=== PATIENT | female | born 1950 | race Caucasian/White ===

== ENCOUNTER 2018-07-12 13:58 | Observation (INO) | payer OTHER ==
--- NOTE | 2018-07-12 14:59 | ER ---
Nurse's Notes [facility] Name: Jovanna Mittal Age: 67 yrs Sex: Female : 1950 Arrival Date: 07/12/2018 Time: 14:03 Bed 24 Private MD: Aimee Marsh F Diagnosis: Chronic obstructive pulmonary disease with (acute) exacerbation;Hypoxemia Presentation: 07/12 14:06 Presenting complaint: Patient states: Fever for 2 days with low SPO2 today. Denies SOB. aj Nasal congestion, sinus and right ear pain. Transition of care: patient was not received from another setting of care. Onset of symptoms was July 10, 2018. Risk Assessment: Do you want to hurt yourself or someone else? Patient reports no desire to harm self or others. Initial Sepsis Screen: Does the patient meet any 2 criteria? RR > 20 per min. HR > 90 bpm. Yes Does the patient have a suspected source of infection? Yes:. Care prior to arrival: None. 14:06 Method Of Arrival: Ambulatory aj 14:06 Acuity: ESTEFANY 3 aj Triage Assessment: 14:09 General: Appears in no apparent distress. comfortable, Behavior is calm, cooperative, aj appropriate for age. Pain: Denies pain. EENT: Reports nasal congestion nasal discharge. Neuro: Oriented to person, place, time, situation, Appropriate for age. Respiratory: Airway is patent Respiratory effort is even, unlabored, Respiratory pattern is regular, symmetrical. Respiratory: Reports cough that is productive. Derm: Skin is intact, is healthy with good turgor, Skin is pink, warm \T\ dry. normal. Historical: - Allergies: 14:09 No Known Allergies; aj - Home Meds: 14:09 Lisinopril Oral [Active]; atorvastatin oral oral [Active]; Albuterol Inhl [Active]; aj Advair Diskus Inhl [Active]; - PMHx: 14:09 COPD; Hypertension; Hyperlipidemia; aj - PSHx: 14:09 Tubal ligation; aj - Immunization history:: Adult Immunizations up to date. - Social history:: Smoking status: Patient uses tobacco products, denies chronic smoking, but will smoke occasionally. - Ebola Screening: : Patient negative for fever greater than or equal to 101.5 degrees Fahrenheit, and additional compatible Ebola Virus Disease symptoms Patient denies exposure to infectious person Patient denies travel to an Ebola-affected area in the 21 days before illness onset No symptoms or risks identified at this time. - Family history:: not pertinent. Screenin:05 Abuse screen: Denies threats or abuse. Nutritional screening: No deficits noted. dm5 Tuberculosis screening: No symptoms or risk factors identified. Fall Risk None identified. Assessment: 15:00 General: Appears comfortable, slender, well groomed, well developed, well nourished, dm5 Behavior is calm, cooperative, appropriate for age, Reports fever for 1-2 days. Pain: Complains of pain in chest. Neuro: Level of Consciousness is awake, alert, obeys commands, Oriented to person, place, time, situation, Appropriate for age. Cardiovascular: Patient's skin is warm and dry. Respiratory: Airway is patent Respiratory effort is even, Respiratory pattern is regular. Respiratory: Reports shortness of breath since 2 days cough that is productive, persistent. GI: No signs and/or symptoms were reported involving the gastrointestinal system. : No signs and/or symptoms were reported regarding the genitourinary system. EENT: No signs and/or symptoms were reported regarding the EENT system. Derm: No signs and/or symptoms reported regarding the dermatologic system. 16:05 Reassessment: No changes from previously documented assessment. Patient and/or family tl3 updated on plan of care and expected duration. Pain level reassessed. Patient is alert, oriented x 3, equal unlabored respirations, skin warm/dry/pink. pt oxygen levels dropped to 88% after nebs, 2 L/M oxygen brought up to 94-96%. 17:12 Reassessment: No changes from previously documented assessment. Patient and/or family tl3 updated on plan of care and expected duration. Pain level reassessed. Patient is alert, oriented x 3, equal unlabored respirations, skin warm/dry/pink. no needs at this time. Vital Signs: 14:09 BP 123 / 77; Pulse 94; Resp 22; Temp 98.9; Pulse Ox 87% on R/A; Weight 69.4 kg; Height aj 5 ft. 2 in. (157.48 cm); 16:05 BP 126 / 99; Pulse 95; Resp 18; Pulse Ox 95% ; tl3 17:12 BP 103 / 57; Pulse 88; Resp 18; Pulse Ox 97% on 2 lpm NC; tl3 14:09 Body Mass Index 27.98 (69.40 kg, 157.48 cm) ED Course: 14:03 Patient arrived in ED. mr 14:04 Aimee Marsh MD is Private Physician. mr 14:07 Triage completed. aj 14:09 Arm band placed on right wrist. Patient placed in an exam room. aj 14:22 Eren Peñaloza MD is Attending Physician. agueda 14:43 Annabelle Ibarra, JEANETH is Primary Nurse. tl3 14:58 Aimee Marsh MD is Hospitalizing Provider. agueda 15:00 Inserted saline lock: 20 gauge in right antecubital area, using aseptic technique. dm5 Blood collected. 15:07 XRAY Chest (1 view) In Process Unspecified. EDMS 15:09 EKG done, by information technology internship. reviewed by Eren Peñaloza MD. 3 16:21 REPEAT EKG DONE. sm3 17:05 Patient has correct armband on for positive identification. Placed in gown. Call light dm5 in reach. Side rails up X 1. Door closed. Lights dimmed. Warm blanket given. 17:05 No provider procedures requiring assistance completed. dm5 17:22 Patient admitted, IV remains in place. tl3 Administered Medications: 11 16:00 Drug: levofloxacin 500 mg Volume: 100 ml; Route: IVPB; Infused Over: 60 mins; Site: tl3 right forearm; Delivery: Primary tubing; 07/12 15:16 Drug: SOLU-Medrol 125 mg Route: IVP; Infused Over: 2 mins; Site: right antecubital; tl3 15:16 Drug: Albuterol - atroVENT (3:1) (2.5 mg - 0.5 mg) 3 ml Route: Nebulizer; tl3 23:59 Follow up: Response: No adverse reaction tl3 15:20 Drug: NS 0.9% 1000 ml Route: IV; Rate: 75 ml/hr; Site: right antecubital; Delivery: tl3 Primary tubing; 17:03 Drug: Lovenox 70 mg Route: Sub-Q; Site: abdomen; dm5 17:04 Follow up: Response: No adverse reaction dm5 17:03 Drug: Pepcid 20 mg Route: IVP; Site: right antecubital; dm5 17:04 Follow up: Response: No adverse reaction dm5 17:04 Drug: Lopressor 25 mg Route: PO; dm5 23:58 Follow up: Response: No adverse reaction tl3 17:04 Drug: Aspirin Chewable Tablet 324 mg Route: PO; dm5 17:05 Follow up: Response: No adverse reaction dm5 Outcome: 14:58 Decision to Hospitalize by Provider. agueda 17:22 Admitted to Tele accompanied by tech, via wheelchair, with chart, Report called to tl3 JEANETH Hyman 17:22 Condition: stable 17:22 Instructed on the need for admit, Demonstrated understanding of instructions. 18:22 Patient left the ED. tl3 Signatures: Dispatcher [employer] EDLeslie Culver RN RN dm5 Geno Elena RN RN aj Anderson, Corey, MD MD cha Rivera, Estefani Ibarra, JEANETH Alanis RN tl3 Libby Restrepo 3
--- NOTE | 2018-07-12 14:59 | EDPHYS ---
Physician Documentation [facility] Name: Jovanna Mittal Age: 67 yrs Sex: Female : 1950 Arrival Date: 07/12/2018 Time: 14:03 Bed 24 Private MD: Aimee Marsh F ED Physician Eren Peñaloza HPI: 07/12 14:45 This 67 yrs old Female presents to ER via Ambulatory with complaints of Low agueda O2. 14:45 The patient has shortness of breath at rest, with light activity. Onset: The agueda symptoms/episode began/occurred 3 day(s) ago. Duration: The symptoms are continuous, and are steadily getting worse. The patient's shortness of breath is aggravated by exertion, supine position, talking, walking, is alleviated by rest, sitting up, application of supplemental oxygen. The patient presents to the emergency department with wheezing, Current therapy: albuterol inhaler, steroid inhaler. Modifying factors: The symptoms are alleviated by nothing. Historical: - Allergies: 14:09 No Known Allergies; aj - Home Meds: 14:09 Lisinopril Oral [Active]; atorvastatin oral oral [Active]; Albuterol Inhl [Active]; aj Advair Diskus Inhl [Active]; - PMHx: 14:09 COPD; Hypertension; Hyperlipidemia; aj - PSHx: 14:09 Tubal ligation; aj - Immunization history:: Adult Immunizations up to date. - Social history:: Smoking status: Patient uses tobacco products, denies chronic smoking, but will smoke occasionally. - Ebola Screening: : Patient negative for fever greater than or equal to 101.5 degrees Fahrenheit, and additional compatible Ebola Virus Disease symptoms Patient denies exposure to infectious person Patient denies travel to an Ebola-affected area in the 21 days before illness onset No symptoms or risks identified at this time. - Family history:: not pertinent. ROS: 14:45 Constitutional: Negative for fever, chills, and weight loss, Eyes: Negative for injury, agueda pain, redness, and discharge, ENT: Negative for injury, pain, and discharge, Neck: Negative for injury, pain, and swelling, Cardiovascular: Negative for chest pain, palpitations, and edema, Abdomen/GI: Negative for abdominal pain, nausea, vomiting, diarrhea, and constipation, Back: Negative for injury and pain, : Negative for injury, bleeding, discharge, and swelling, MS/Extremity: Negative for injury and deformity, Skin: Negative for injury, rash, and discoloration, Neuro: Negative for headache, weakness, numbness, tingling, and seizure, Psych: Negative for depression, anxiety, suicide ideation, homicidal ideation, and hallucinations, Allergy/Immunology: Negative for hives, rash, and allergies, Endocrine: Negative for neck swelling, polydipsia, polyuria, polyphagia, and marked weight changes, Hematologic/Lymphatic: Negative for swollen nodes, abnormal bleeding, and unusual bruising. 14:45 Respiratory: Positive for cough, shortness of breath, at rest. Exam: 14:45 Constitutional: This is a well developed, well nourished patient who is awake, alert, agueda and in no acute distress. Head/Face: Normocephalic, atraumatic. Eyes: Pupils equal round and reactive to light, extra-ocular motions intact. Lids and lashes normal. Conjunctiva and sclera are non-icteric and not injected. Cornea within normal limits. Periorbital areas with no swelling, redness, or edema. ENT: Nares patent. No nasal discharge, no septal abnormalities noted. Tympanic membranes are normal and external auditory canals are clear. Oropharynx with no redness, swelling, or masses, exudates, or evidence of obstruction, uvula midline. Mucous membranes moist. Neck: Trachea midline, no thyromegaly or masses palpated, and no cervical lymphadenopathy. Supple, full range of motion without nuchal rigidity, or vertebral point tenderness. No Meningismus. Chest/axilla: Normal chest wall appearance and motion. Nontender with no deformity. No lesions are appreciated. Cardiovascular: Regular rate and rhythm with a normal S1 and S2. No gallops, murmurs, or rubs. Normal PMI, no JVD. No pulse deficits. Abdomen/GI: Soft, non-tender, with normal bowel sounds. No distension or tympany. No guarding or rebound. No evidence of tenderness throughout. Back: No spinal tenderness. No costovertebral tenderness. Full range of motion. Female : Normal external genitalia. Skin: Warm, dry with normal turgor. Normal color with no rashes, no lesions, and no evidence of cellulitis. MS/ Extremity: Pulses equal, no cyanosis. Neurovascular intact. Full, normal range of motion. Neuro: Awake and alert, GCS 15, oriented to person, place, time, and situation. Cranial nerves II-XII grossly intact. Motor strength 5/5 in all extremities. Sensory grossly intact. Cerebellar exam normal. Normal gait. Psych: Awake, alert, with orientation to person, place and time. Behavior, mood, and affect are within normal limits. 14:45 Respiratory: moderate respiratory distress is noted, Respirations: labored breathing, that is mild, Breath sounds: bronchial sounds, that are moderate, are scattered, decreased breath sounds, that are moderate, rhonchi, wheezing: inspiratory expiratory 15:07 Musculoskeletal/extremity: DVT Exam: No signs of deep vein thrombosis. no pain, no agueda swelling, no tenderness, negative Homans' sign noted on exam, no appreciated bluish discoloration, no erythema, no increased warmth. Vital Signs: 14:09 BP 123 / 77; Pulse 94; Resp 22; Temp 98.9; Pulse Ox 87% on R/A; Weight 69.4 kg; Height aj 5 ft. 2 in. (157.48 cm); 16:05 BP 126 / 99; Pulse 95; Resp 18; Pulse Ox 95% ; tl3 17:12 BP 103 / 57; Pulse 88; Resp 18; Pulse Ox 97% on 2 lpm NC; tl3 14:09 Body Mass Index 27.98 (69.40 kg, 157.48 cm) MDM: 14:22 Patient medically screened. [facility] 14:48 Data reviewed: vital signs, nurses notes, lab test result(s), EKG, radiologic studies, [facility] plain films. 07/12 14:44 Order name: Basic Metabolic Panel; Complete Time: 16:01 [facility] 07/12 14:44 Order name: CBC with Diff; Complete Time: 16:01 [facility] 07/12 14:44 Order name: LFT's; Complete Time: 16: [facility] 07/12 14:44 Order name: Magnesium; Complete Time: 16: [facility] 07/12 14:44 Order name: NT PRO-BNP; Complete Time: 16: [facility] 07/12 14:44 Order name: PT-INR; Complete Time: 16: [facility] 07/12 14:44 Order name: Troponin (emerg Dept Use Only); Complete Time: 16: [facility] 07/12 14:44 Order name: Blood Culture Adult (2) [facility] 07/12 14:44 Order name: Influenza Screen (a \T\ B); Complete Time: 16:01 [facility] 07/12 14:59 Order name: Urine Culture [facility] 07/12 15:17 Order name: Basic Metabolic Panel [facility] 07/12 15:17 Order name: Basic Metabolic Panel [facility] 07/12 15:17 Order name: CBC with Automated Diff [facility] 07/12 15:17 Order name: CBC with Automated Diff [facility] 07/12 14:44 Order name: XRAY Chest (1 view); Complete Time: 16:01 [facility] 07/12 15:17 Order name: NT PRO-BNP [facility] 07/12 15:17 Order name: NT PRO-BNP [facility] 07/12 15:17 Order name: Troponin I [facility] 07/12 15:17 Order name: Troponin I [facility] 07/12 15:18 Order name: Troponin I [facility] 07/12 15:18 Order name: Chest Single View [facility] 07/12 15:18 Order name: Chest Single View [facility] 07/12 14:44 Order name: EKG; Complete Time: 14:45 [facility] 07/12 14:44 Order name: Cardiac monitoring; Complete Time: 15:18 [facility] 07/12 14:44 Order name: EKG - Nurse/Tech; Complete Time: 15:18 [facility] 07/12 14:44 Order name: IV Saline Lock; Complete Time: 15:18 [facility] 07/12 14:44 Order name: Labs collected and sent; Complete Time: 15:18 [facility] 07/12 14:44 Order name: O2 Per Protocol; Complete Time: 15:17 [facility] 07/12 14:44 Order name: O2 Sat Monitoring; Complete Time: 15:18 [facility] 07/12 14:59 Order name: Urine Dipstick-Ancillary (obtain specimen); Complete Time: 23:58 [facility] 07/12 15:17 Order name: Heart Healthy [facility] 07/12 15:17 Order name: EKG Electrocardiogram [facility] 07/12 15:17 Order name: EKG Electrocardiogram [facility] 07/12 16:17 Order name: EKG; Complete Time: 16:35 [facility] 07/12 16:17 Order name: EKG - Nurse/Tech; Complete Time: 16:35 [facility] Administered Medications: 07/11 16:00 Drug: levofloxacin 500 mg Volume: 100 ml; Route: IVPB; Infused Over: 60 mins; Site: tl3 right forearm; Delivery: Primary tubing; 07/12 15:16 Drug: SOLU-Medrol 125 mg Route: IVP; Infused Over: 2 mins; Site: right antecubital; tl3 15:16 Drug: Albuterol - atroVENT (3:1) (2.5 mg - 0.5 mg) 3 ml Route: Nebulizer; tl3 23:59 Follow up: Response: No adverse reaction tl3 15:20 Drug: NS 0.9% 1000 ml Route: IV; Rate: 75 ml/hr; Site: right antecubital; Delivery: tl3 Primary tubing; 17:03 Drug: Lovenox 70 mg Route: Sub-Q; Site: abdomen; dm5 17:04 Follow up: Response: No adverse reaction dm5 17:03 Drug: Pepcid 20 mg Route: IVP; Site: right antecubital; dm5 17:04 Follow up: Response: No adverse reaction dm5 17:04 Drug: Lopressor 25 mg Route: PO; dm5 23:58 Follow up: Response: No adverse reaction tl3 17:04 Drug: Aspirin Chewable Tablet 324 mg Route: PO; dm5 17:05 Follow up: Response: No adverse reaction dm5 Disposition: 07/12/18 14:58 Hospitalization ordered by Aimee Marsh for Observation. Preliminary diagnosis are Chronic obstructive pulmonary disease with (acute) exacerbation, Hypoxemia. - Bed requested for Telemetry/MedSurg (observation). - Status is Observation. tl3 - Condition is Fair. - Problem is new. - Symptoms have improved. UTI on Admission? No Signatures: Dispatcher [employer] [facility] Leslie Swann RN RN dm5 Janet Polk RN Geno Grant RN RN aj Anderson, Corey, MD MD cha Lowrey, Tammy, RN RN tl3 Corrections: (The following items were deleted from the chart) 15:48 14:58 Hospitalization Ordered by Aimee Marsh MD for Observation. Preliminary dw diagnosis is Chronic obstructive pulmonary disease with (acute) exacerbation; Hypoxemia. Bed requested for Telemetry/MedSurg (observation). Status is Observation. Condition is Fair. Problem is new. Symptoms have improved. UTI on Admission? No. agueda 18:22 15:48 07/12/2018 14:58 Hospitalization Ordered by Aimee Marsh MD for Observation. tl3 Preliminary diagnosis is Chronic obstructive pulmonary disease with (acute) exacerbation; Hypoxemia. Bed requested for Telemetry/MedSurg (observation). Status is Observation. Condition is Fair. Problem is new. Symptoms have improved. UTI on Admission? No. dw
[2018-07-12] MEDS ORDERED: ACETAMINOPHEN 500 MG TAB PO PRN (15:02)
[2018-07-12] MEDS ORDERED: ONDANSETRON 4 MG/2 ML VIAL IV PRN (15:02)
[2018-07-12] MEDS ORDERED: NA CHLORIDE 0.9% 1,000 ML ONE (15:09)
[2018-07-12] MEDS ORDERED: METHYLPREDNISOLONE 125 MG INJ ONE (15:09)
[2018-07-12] MEDS ORDERED: IPRATROPIUM BROM 0.5MG/2.5ML ONE (15:09)
[2018-07-12] MEDS ORDERED: ALBUTEROL 2.5 MG/3 ML NEB SOL ONE (15:09)
[2018-07-12 15:12] LABS: Absolute Lymphocytes (CBC) 0.7 K/uL (0.7-4.9); Absolute Monocytes 0.7 K/uL (0.1-1.3); Absolute Neutrophil 2.5 K/uL (1.8-8.0); Hematocrit 46.2 % (36.0-45.0); Lymphocytes % 17.4 % (15.3-44.8); MCH 31.8 pg (27.0-35.0); MCV 95.2 fL (80-100); Monocytes % 18.8 % (3.3-12.3); Protime INR 0.92; RBC Red Blood Cell Count 4.85 M/uL (3.86-4.86)
[2018-07-12 15:28] LABS: Albumin 4.2 g/dL (3.4-5.0); Bilirubin Direct 0.2 mg/dL (0-0.2); Bilirubin Total 0.7 mg/dL (0.2-1.0); Magnesium 1.9 mg/dL (1.8-2.4); Potassium 4.1 mmol/L (3.5-5.1); Protein, Total 7.7 g/dL (6.4-8.2); Troponin (Emerg Dept Use Only) 0.11 ng/mL (0.0-0.045)
--- NOTE | 2018-07-12 15:29 | RAD REPORT ---
EXAM DESCRIPTION: RAD - Chest Single View - 07/12/2018 3:06 pm CLINICAL HISTORY: Cough, COPD COMPARISON: November 2015 TECHNIQUE: AP portable chest image was obtained 1602 hours . FINDINGS: No focal consolidation, mass or significant failure finding. Fibrotic lung pattern is martell lar to comparison. Heart and vasculature are normal. No measurable pleural effusion and no pneumothor ax. No acute bony abnormality seen. No acute aortic findings suspected. IMPRESSION: No acute cardiopulmonary process. Fibrotic lung pattern similar to comparison.
[2018-07-12] MEDS: Levofloxacin500mg IV 500 MG/100 ML BAG IV SCH (16:00)
[2018-07-12] MEDS ORDERED: ASPIRIN 81 MG CHEWABLE TABLET ONE (16:56)
[2018-07-12] MEDS ORDERED: FAMOTIDINE 20 MG/2 ML VIAL IV ONE (16:57)
[2018-07-12] MEDS: METHYLPREDNISOLONE 40 MG INJ IV SCH (17:00)
[2018-07-12 17:55] VITALS: BMI 28.9
[2018-07-12] MEDS: METOPROLOL TAR 25 MG TAB PO SCH (18:00)
--- NOTE | 2018-07-12 18:45 | EKG ---
Test Date: 2018-07-12 Test Time: 16:17:35 Strategic Planning Manager: CHAVA MEASUREMENT RESULTS: Intervals: Rate: 91 LA: 140 QRSD: 80 QT: 398 QTc: 489 [place]: P: 73 LA: 140 QRS: 72 T: 70 INTERPRETIVE STATEMENTS: Normal sinus rhythm Normal ECG Compared to ECG 07/12/2018 14:59:01 No significant changes Electronically Signed On 07-12-18 18:44:40 GILL BOX TENDER by Pawan Cortez
--- NOTE | 2018-07-12 18:46 | EKG ---
Test Date: 2018-07-12 Test Time: 14:59:01 Agriculture Technician: CHAVA MEASUREMENT RESULTS: Intervals: Rate: 88 SC: 140 QRSD: 78 QT: 384 QTc: 464 [place]: P: 77 SC: 140 QRS: 75 T: 76 INTERPRETIVE STATEMENTS: Normal sinus rhythm Normal ECG Compared to ECG 08/07/2003 11:25:00 No significant changes Electronically Signed On 07-12-18 18:44:44 LAB COURIER by Pawan Cortez
[2018-07-12] MEDS ORDERED: INFLUENZA VACCINE (for 3y+) 0.5 ML DOSE IMVAC ONE (19:00)
[2018-07-12] MEDS ORDERED: PNEUMOCOCCAL VACCINE 0.5 ML IMVAC ONE (19:00)
[2018-07-12] MEDS: FAMOTIDINE 20 MG/2 ML VIAL IV SCH (20:55)
[2018-07-12] MEDS: ENOXAPARIN 80 MG/0.8 ML SQ SCH (20:55)
[2018-07-13] MEDS: METHYLPREDNISOLONE 40 MG INJ IV SCH ×3 (01:25→16:15)
[2018-07-13] MEDS: METOPROLOL TAR 25 MG TAB PO SCH ×2 (05:38→17:40)
[2018-07-13 06:24] LABS: Absolute Lymphocytes (CBC) 0.3 K/uL (0.7-4.9); Absolute Monocytes 0.2 K/uL (0.1-1.3); Absolute Neutrophil 1.2 K/uL (1.8-8.0); Basophils % 0.3 % (0-1.3); Hematocrit 43.1 % (36.0-45.0); Lymphocytes % 19.7 % (15.3-44.8); MCH 31.8 pg (27.0-35.0); MCV 94.7 fL (80-100); MPV 7.8 fL (7.6-11.3); Monocytes % 9.9 % (3.3-12.3); RBC Red Blood Cell Count 4.55 M/uL (3.86-4.86)
[2018-07-13 06:37] LABS: BUN Blood Urea Nitrogen 12 mg/dL (7-18); Bicarbonate 30 mmol/L (21-32); Glucose Level 138 mg/dL (74-106); NT PRO-BNP 201 pg/mL (<125); Potassium 4.4 mmol/L (3.5-5.1); Sodium Level 139 mmol/L (136-145)
[2018-07-13 06:52] LABS: Blood Morphology Comment NOT SEEN (NOT SEEN); Platelet Estimate ADEQ; Urine White Blood Cell Casts OK
[2018-07-13] MEDS: FAMOTIDINE 20 MG/2 ML VIAL IV SCH ×2 (08:18→21:30)
[2018-07-13] MEDS: ASPIRIN EC 81 MG TAB PO SCH (08:19)
[2018-07-13] MEDS: ENOXAPARIN 80 MG/0.8 ML SQ SCH ×2 (08:19→21:29)
--- NOTE | 2018-07-13 10:33 | RAD REPORT ---
EXAM DESCRIPTION: Sun Single View07/13/2018 6:12 am CLINICAL HISTORY: 07/12 COMPARISON: none FINDINGS: The lungs appear clear of acute infiltrate. The heart is normal size IMPRESSION: No acute abnormalities displayed
[2018-07-13] MEDS ORDERED: INFLUENZA VACCINE (for 3y+) 0.5 ML DOSE IMVAC ONE (14:00)
[2018-07-13] MEDS ORDERED: PNEUMOCOCCAL VACCINE 0.5 ML IMVAC ONE (14:00)
[2018-07-13] MEDS: Levofloxacin500mg IV 500 MG/100 ML BAG IV SCH (16:14)
--- NOTE | 2018-07-13 18:55 | HP ---
Date of Admission: 07/12/2018 History Of Present Illness: A 67-year-old female who came to emergency room, she had a complaint vincent t she had been having running fever. She did not take her temperature, but she has felt febrile. Sh e had no chills. She was feeling tired and fatigued. She was found to have hypoxia with COPD exacer iron, was admitted for that. She denied any chest pain. She had no nausea, vomiting, and voiced n o other complaints. Review of Systems: Cardiovascular: No complaint. Respiratory: As above. Genitourinary: No complaint. Skeletomuscular: No complaint. Neurological: No complaint. Gastrointestinal: No complaint. Past Medical History: Hypertension, hyperlipidemia, COPD. Social History: The patient said she just stopped smoking about 6 weeks ago. Denies alcohol or IV d rug abuse history. Medications: Include lisinopril, atorvastatin, and albuterol. Dosage not verified and also on Advai r Diskus. Allergies: NO KNOWN DRUG ALLERGIES. Physical Examination: General: The patient is sitting, in no acute distress. She is feeling well by the time of interview ing her, her room air was 93 pulse ox saturation, temperature 98.1, heart pulse 77, blood pressure 13 0/79. Heart: Regular rate and rhythm. Chest: Clear to auscultation. Abdomen: Soft, benign, nontender. Bowel sounds are normoactive. Extremities: No edema. No cyanosis. Peripheral pulses are felt. Neurologic: Alert, oriented, nonfocal. Grossly intact. Diagnostic Data: Chest x-ray, no acute pathology. She has a fibrotic pattern, chronic. EKG, normal sinus rhythm. Laboratory Data: White cell count dropped from 3.9 to 1.7, hemoglobin 14.5, hematocrit 43.1, platele ts 166. Chemistry noted the patient's troponin was 0.11, rapid, and then the troponin 1 was less vincent n 0.02 and 0.09. Assessment And Plan: Chronic obstructive pulmonary disease exacerbation. The patient was admitted, put on beta 2 agonist breathing treatments, oxygen protocol, was put on ipratropium. Cardiology was consulted. Dr. Cortez has seen the patient, thought that her increased troponin is not related to a ny cardiac issue; however, the patient with leukopenia drop in her white cell count, I would like to keep the patient for 1 more day for observation. We will repeat the CBC. We will put her on IV Roce phin, however, if her white cell count showed no further dropping and she stays clinically stable, we will discharge in the morning. Look orders for details. VIOLA/ROBIN Voice ID: [id number]
[2018-07-13] MEDS: ALBUTEROL 2.5 MG/3 ML NEB SOL NEB PRN (20:35)
[2018-07-13] MEDS: IPRATROPIUM BROM 0.5MG/2.5ML NEB PRN (22:35)
[2018-07-14] MEDS: METHYLPREDNISOLONE 40 MG INJ IV SCH ×3 (00:16→17:05)
[2018-07-14] MEDS: METOPROLOL TAR 25 MG TAB PO SCH ×2 (05:47→17:04)
[2018-07-14 06:28] LABS: Absolute Lymphocytes (CBC) 0.6 K/uL (0.7-4.9); Absolute Monocytes 0.5 K/uL (0.1-1.3); Absolute Neutrophil 6.5 K/uL (1.8-8.0); Basophils % 0.1 % (0-1.3); Hematocrit 42.3 % (36.0-45.0); Lymphocytes % 7.4 % (15.3-44.8); MCH 31.9 pg (27.0-35.0); MPV 8.2 fL (7.6-11.3); Monocytes % 6.9 % (3.3-12.3)
[2018-07-14] MEDS: ASPIRIN EC 81 MG TAB PO SCH (08:34)
[2018-07-14] MEDS: ENOXAPARIN 80 MG/0.8 ML SQ SCH ×2 (08:34→20:47)
[2018-07-14] MEDS: FAMOTIDINE 20 MG/2 ML VIAL IV SCH (08:34)
[2018-07-14] MEDS: ALBUTEROL 2.5 MG/3 ML NEB SOL NEB PRN ×2 (08:50→14:00)
[2018-07-14] MEDS: IPRATROPIUM BROM 0.5MG/2.5ML NEB PRN ×2 (08:50→14:00)
[2018-07-14 11:52] LABS: Arterial Blood Carboxyhemoglob 1.2 % (0-1.5); Blood Gas Oxyhemoglobin 81.5 % (94-97)
--- NOTE | 2018-07-14 14:04 | RAD REPORT ---
EXAM DESCRIPTION: CT - Chest For Pe Angio - 07/14/2018 1:40 pm CLINICAL HISTORY: Chest pain, shortness of breath COMPARISON: Chest film July 13 TECHNIQUE: Dynamically enhanced 3 mm thick images of the chest were obtained during administration o f approximately 150mL Isovue 370 IV contrast. Coronal and oblique MIP reconstruction images were gene rated and reviewed. Exam utilizes a protocol to evaluate the pulmonary arterial tree. All CT scans are performed using dose optimization technique as appropriate and may include automated exposure control or mA/KV adjustment according to patient size. FINDINGS: No pulmonary emboli are identified. The aorta as imaged shows no acute or suspicious finding. No pericardial thickening or effusion. No infiltrate or mass in the lung parenchyma. No pleural effusion or pleural thickening. Minimal scar ring or atelectasis at each lung base. No mediastinal or hilar suspicious masses. No chest wall masses or abnormal axillary lymphadenopathy. IMPRESSION: No pulmonary emboli identified. No other significant or suspicious findings.
[2018-07-14] MEDS: Levofloxacin500mg IV 500 MG/100 ML BAG IV SCH (17:04)
[2018-07-14] MEDS: FAMOTIDINE 20 MG TAB PO SCH (20:47)
--- NOTE | 2018-07-14 22:33 | CON ---
Reason For Consultation: Chest pain, elevated troponin, shortness of breath, and chronic obstructive pulmonary disease. History Of Present Illness: Ms. Mittal is 67, has a history of COPD, hypertension, dyslipidemia, came in with fever, shortness of breath, COPD, was being treated for bronchitis, was found to have a trop onin of 0.11. Chest pain is sharp, atypical, and pleuritic. No nausea, vomiting, diaphoresis, PND, orthopnea, pedal edema, palpitations, or syncope. Past Medical History: Includes COPD, hypertension, and dyslipidemia. Allergies: NONE. Review of Systems: Negative. Social History: Negative. Family History: Negative. Medications: At home include lisinopril, Lipitor, and inhalers. Physical Examination: Vital Signs: Stable. Afebrile. HEENT: Negative. Neck: Supple. No bruit. Chest: Clear to auscultation and percussion. Cardiac: Reveals a regular rhythm and rate. No murmurs, gallops, or rubs. Abdomen: Benign. Extremities: Revealed no clubbing, cyanosis, or edema. Diagnostic Data: Troponin was 0.11. Chest x-ray is negative. Impression And Plan: 1.Elevated troponin, possibly secondary to chronic obstructive pulmonary disease and hypoxia and bro nchitis. The patient had fever. She is being treated with antibiotics. Chronic obstructive pulmona ry disease is being treated. 2.Hypertension. 3.Dyslipidemia. I think Ms. Mittal has enough risk factors that I think an outpatient Lexiscan is in dicated eventually. There is an echocardiogram that is pending for today. We will see what that jan ws prior to making final decisions. I will continue her Lipitor and her lisinopril for her dyslipide sree and hypertension respectively. I will discuss the case further with Dr. Marsh. ALIRIO/ROBIN Voice ID: [id number] Report ID: [id number]
[2018-07-15] MEDS: METHYLPREDNISOLONE 40 MG INJ IV SCH ×3 (00:57→16:40)
[2018-07-15] MEDS: METOPROLOL TAR 25 MG TAB PO SCH ×2 (05:14→17:10)
[2018-07-15] MEDS: ASPIRIN EC 81 MG TAB PO SCH (08:05)
[2018-07-15] MEDS: FAMOTIDINE 20 MG TAB PO SCH ×2 (08:05→21:05)
[2018-07-15] MEDS: ENOXAPARIN 80 MG/0.8 ML SQ SCH ×2 (08:05→21:04)
[2018-07-15] MEDS: IPRATROPIUM BROM 0.5MG/2.5ML NEB PRN (08:40)
[2018-07-15] MEDS: ALBUTEROL 2.5 MG/3 ML NEB SOL NEB PRN (09:50)
--- NOTE | 2018-07-15 14:02 | EKG ---
Test Date: 2018-07-15 Test Time: 10:26:35 Accounting Tutor: JASSON MEASUREMENT RESULTS: Intervals: Rate: 76 HI: 142 QRSD: 80 QT: 414 QTc: 465 [place]: P: 80 HI: 142 QRS: 81 T: 65 INTERPRETIVE STATEMENTS: Normal sinus rhythm Normal ECG Compared to ECG 07/12/2018 16:17:35 No significant changes Electronically Signed On 07-15-18 14:01:12 BUSINESS OFFICE DIRECTOR by Alon Ta
[2018-07-15] MEDS: Levofloxacin500mg IV 500 MG/100 ML BAG IV SCH (16:40)
[2018-07-16] MEDS: METHYLPREDNISOLONE 40 MG INJ IV SCH ×2 (01:10→08:11)
--- NOTE | 2018-07-16 04:16 | DS ---
Addendum: The patient's ABGs were noted. The patient has chronic hypoxia. However, we went ahead a nd checked the chest CT scan angiography for PE that came back negative. I think we will go ahead an d discharge the patient on portable 2 L oxygen nasal prong along with the rest of her discharge instr uctions before. Look orders for details. MFS/MODL Voice ID: [id number] Report ID: [id number]
--- NOTE | 2018-07-16 04:16 | DS ---
Addendum: The patient needs home oxygen because she has COPD with chronic respiratory failure. She had exacerbation at this time with acute respiratory failure on top of chronic with hypoxia. MFS/MODL Voice ID: [id number] Report ID: [id number]
[2018-07-16] MEDS: METOPROLOL TAR 25 MG TAB PO SCH (05:13)
[2018-07-16] MEDS: ENOXAPARIN 80 MG/0.8 ML SQ SCH (08:10)
[2018-07-16] MEDS: ASPIRIN EC 81 MG TAB PO SCH (08:10)
[2018-07-16] MEDS: FAMOTIDINE 20 MG TAB PO SCH (08:11)
[2018-07-16 09:24] VITALS: BP 165/95; TEMP 98.9
[2018-07-16 13:20] VITALS: O2SAT 96
== END 2018-07-16 12:10 | disposition home or self-care (01) ==
LOC: ER 13:58 → ERHOLD 15:01 → 4TH 17:25
PROVIDERS: ADMIT Internal Medicine; ATTEND Internal Medicine
DX: J44.1 Chronic obstructive pulmonary disease with (acute) exacerbation (principal); R09.02 Hypoxemia; J96.11 Chronic respiratory failure with hypoxia; I10 Essential (primary) hypertension; E78.5 Hyperlipidemia, unspecified; Z23 Encounter for immunization
CPT/HCPCS: 36415 ×2; 71045 ×2; 71275; 80048 ×2; 80076; 82805; 83735; 83880 ×2; 84484 ×3; 85025 ×3; 85610; 87040 ×2; 87070; 87205; 87804 ×2; 90670; 93005 ×3; 94640 ×2; 94760 ×7; 96372; 99285; G0008; G0009; G0378 ×2; J1650 ×7; J2405; J2920 ×10; J2930; J7030; Q2035; Q9967; 96374; 96375